=== PATIENT | female | born 2000 | race Caucasian/White ===

== ENCOUNTER 2018-08-20 15:22 | Emergency (ER) | payer OTHER ==
[2018-08-20 16:18] LABS: KETONE, URINE AUTO RFX NEGATIVE (NEGATIVE); LEUKOCYTE ESTERASE UR AUTO RFX NEGATIVE (NEGATIVE); MUCUS, URINE RFX SMALL (NEGATIVE); NITRITE, URINE AUTO RFX NEGATIVE (NEGATIVE); RBC, URINE AUTO RFX 0 /HPF (0-3); SPECIFIC GRAVITY UR AUTO RFX 1.021 (1.002-1.035); SQUAM EPITHELIAL CELL UR AURFX 4 /HPF (0-6); WBC, URINE AUTO RFX 2 /HPF (0-3)
[2018-08-20 16:31] LABS: CONTROL LINE UCG INT CTR LINE PRESENT; URINE PREG TEST NEGATIVE (NEGATIVE)
[2018-08-20 16:38] LABS: INFLUENZA A AMPLIFICATION NEGATIVE (NEGATIVE); INFLUENZA B AMPLIFICATION NEGATIVE (NEGATIVE)
== END 2018-08-20 17:06 | disposition home or self-care (01) ==
LOC: M ED 15:22
DX: B34.9 Viral infection, unspecified (principal); J02.9 Acute pharyngitis, unspecified; M79.10 Myalgia, unspecified site; R68.83 Chills (without fever); Z79.899 Other long term (current) drug therapy
CPT/HCPCS: 84703

== ENCOUNTER 2018-10-17 07:29 | Day surgery (SDC) | payer OTHER ==
[~2018-10-17] VITALS: Ht 160 cm; Wt 73.0 kg
[~2018-10-17 07:29] MED LIST: PSEU60TA23 PO
[2018-10-17] MEDS ORDERED: fentaNYL 250 MCG/5 ML INJECTION (J3010) As Ordered ONE (07:55)
[2018-10-17] MEDS ORDERED: LIDOCAINE 2% INJ 100 MG/5 ML SDV (FOR ANES.) As Ordered ONE (07:55)
[2018-10-17] MEDS ORDERED: PROPOFOL 200 MG/20 ML VIAL As Ordered ONE (07:55)
[2018-10-17] MEDS ORDERED: ROCURONIUM BROMIDE 50 MG/5 ML VIAL As Ordered ONE (07:55)
[2018-10-17] MEDS ORDERED: MIDAZOLAM INJ 2 MG/2 ML VIAL (J2250) As Ordered ONE (07:55)
[2018-10-17] MEDS ORDERED: BUPIVACAINE HCL 0.5% 10 ML VIAL As Ordered ONE (08:31)
[2018-10-17] MEDS ORDERED: LIDOCAINE 1% MDV 20ML VIAL As Ordered ONE (08:31)
[2018-10-17 08:33] LABS: URINE PREG TEST NEGATIVE (NEGATIVE)
[2018-10-17] MEDS ORDERED: ONDANSETRON 4MG/2ML VIAL (J2405) As Ordered ONE (08:56)
[2018-10-17] MEDS ORDERED: dexameTHASONE 4 MG/ML 1ML VIAL (J1100) As Ordered ONE (08:57)
[2018-10-17] MEDS ORDERED: KETOROLAC 60 MG/2 ML VIAL (J1885) As Ordered ONE (08:57)
[2018-10-17] MEDS ORDERED: PERCOCET 5MG/325MG TAB As Ordered ONE (09:41)
[2018-10-17] MEDS ORDERED: ONDANSETRON 4MG/2ML VIAL (J2405) IV PRN (10:00)
[2018-10-17] MEDS ORDERED: PERCOCET 5MG/325MG TAB PO PRN (10:00)
[2018-10-17] MEDS ORDERED: LR 1,000 ML IV SCH (10:00)
[2018-10-17] MEDS ORDERED: MEPERIDINE INJ 25 MG/ML VIAL (J2175) IV PRN (10:00)
[2018-10-17] MEDS ORDERED: fentaNYL 100 MCG/2 ML INJECTION (J3010) IV PRN (10:00)
[2018-10-17 10:06] VITALS: BP 142/72
--- NOTE | 2018-10-17 14:37 | RO ---
DATE OF PROCEDURE: 10/17/2018 PREOPERATIVE DIAGNOSIS: Chronic tonsillitis. POSTOPERATIVE DIAGNOSIS: Chronic tonsillitis. OPERATION PERFORMED: Tonsillectomy with Coblator. SURGEON: Des Vásquez Jr., MD JOGGLE PRESS OPERATOR: ANESTHESIA: General via endotracheal tube by Dr. Lynne and Demarco. INDICATIONS FOR PROCEDURE: Chronic tonsillitis. PROCEDURE IN DETAIL: With the patient in the supine position after being induced, intubated, prepped and draped in usual fashion, the patient was turned 90 degrees and a Kenney-Vijay grooved tongue blade was placed in the oral cavity for soft palate retraction. Next, attention then was drawn to placing her in a Sommer position. She was suspended and a red rubber Ornelas was placed through the left nasal cavity and brought out through the oral cavity for soft palate retraction. After this was done, the Coblator EVAC [id number] wand was used with Coblator setting 7 and coag 3 to dissect the left tonsil out the tonsillar fossa was very deep and endophytic, and in a similar fashion the right side was also dissected out but it was also very deep and endophytic. After this was dissected out, 1.5 mL of a mixture of 1% lidocaine and 0.5% bupivacaine was injected with a 27-gauge needle into the tonsillar fossae very carefully and aspirating prior to injection for postop analgesia. After this was done, the tonsils were irritated with sponges and cold saline were used to irritate the area. The adenoid had been expected and was not enlarged. The grooved tongue blade was released and inspected. There was no further bleeding, Valsalva were done and again no further bleeding. There were no problems. No complications. Control of the patient was turned over to the anesthesiologist. Estimated blood loss was less than 1 mL. MTDD
== END 2018-10-17 11:06 | disposition home or self-care (01) ==
LOC: M SDC 07:29 → MERGE 08:45 → M SDC 11:06
PROVIDERS: ATTEND Otolaryngology
DX: J35.01 Chronic tonsillitis (principal)
CPT/HCPCS: 42826; 84703; 88302; J1100; J1885; J2250; J2405; J3010

== ENCOUNTER 2019-06-22 14:27 | Outpatient (CLI) | payer OTHER ==
[~2019-06-22] VITALS: Ht 160 cm; Wt 81.8 kg
[2019-06-22 14:50] VITALS: BP 112/61
[2019-06-22 14:58] LABS: HEMATOCRIT 34.6 % (36.0-47.0); HEMOGLOBIN 11.9 g/dl (12.0-15.5); MEAN CORPUSCULAR HEMOGLOBIN 31.7 pg (27.0-33.0); MEAN CORPUSCULAR HGB CONC 34.4 g/dl (32.0-36.5); MEAN CORPUSCULAR VOLUME 92.3 fl (80.0-96.0); PLATELET COUNT, AUTOMATED 178 10^3/uL (150-450); RED BLOOD COUNT 3.75 10^6/uL (4.00-5.40); WHITE BLOOD COUNT 12.5 10^3/uL (4.0-10.0)
[2019-06-22] MEDS ORDERED: ACETAMINOPHEN 500 MG TAB PO ONE (15:30)
[2019-06-22 15:34] LABS: ALT/SGPT 16 U/L (12-78); BILIRUBIN,TOTAL 0.2 MG/DL (0.2-1.0); CREATININE FOR GFR 0.61 MG/DL (0.55-1.30); GLOMERULAR FILTRATION RATE > 60.0 (>60); LDH LACTATE DEHYDROGENASE 227 U/L (84-246); URIC ACID 4.1 MG/DL (2.6-6.0)
[2019-06-22 15:40] VITALS: BP 123/72
[2019-06-22 15:40] LABS: TOTAL PROTEIN,RANDOM URINE 15.5 MG/DL (0.0-12.0)
--- NOTE | 2019-06-22 15:47 | IPNPDOC ---
Text Note Date of Service The patient was seen on 06/22/19. NOTE OB Considerations: - mild CFTR mutation , FOB negative, PNC appt completed - Varicella nonimmune: needs vaccination - Overweight BMI Viki is a 19yo G1 at 30+2wks by 8wk US (KEY [id number]) presents from clinic with isolated elevated blood pressure and feeling lightheaded. She reports that she has had headaches since started, usually resolved with time or Tylenol. She reports frontal headache, took 325mg of Tylenol early this morning. She reports 4/10. She also reports feeling off, lightheaded with prolonged standing, "like before you pass out" but denies syncope x2 days. She reports allergy symptoms (itchy/watery eyes, cough, sneezing). She denies vision changes, RUQ pain, dysuria, hematuria, vaginal bleeding, LOF, ctx, sick contacts, or recent travel. Reports active movement. VS: Reviewed: normotensive, nontachycardic, afebrile GEN: WNWD, NAD HEENT: EOMI, PERRLA CV: RRR RESP: CTAB ABD: Soft, Gravid, NT NEURO: CN II-XII intact, +2/4 biceps and patellar DTRs bilaterally EXT: No Edema TAUS: Cephalic, + cardiac activity, Anterior placenta, SOFI 16.5cm FHR: 150bpm, moderate variability, + Accelerations (15x15), - Decelerations TOCO: no contractions Spot: 0.176 Tylenol 1000mg PO x1 A/P: SIUP at 30wks with the above complaints, VS WNL, ruled out for pre eclampsia, symptoms resolved with rest and Tylenol. RNST for gestational age, quiet toco. SOFI WNL. Discussed normal physiologic changes of with patient. - Discussed Strict return precautions - Discussed PTL and Pre Eclampsia precautions - Encouraged hydration - Discussed kick counts - Patient is to keep all scheduled follow ups DO TIMMY Hill Fishbone I+O Kobe WARNER, I+O Laboratory Tests 06/22/19 14:47 Red Blood Count 3.75 L, Mean Corpuscular Volume 92.3, Mean Corpuscular Hemoglobin 31.7, Mean Corpuscular Hemoglobin Concent 34.4, Red Cell Distribution Width 11.9 RAN CESAR DO Jun 22, 2019 15:47
[2019-06-22] MEDS ORDERED: MAPA500T2 PO (16:25)
[2019-06-22] MEDS ORDERED: TUMS500C PO (16:25)
[2019-06-22] MEDS ORDERED: PRENTAB9 PO (16:25)
== END 2019-06-22 16:45 | disposition home or self-care (01) ==
LOC: M LDO 14:27
PROVIDERS: ATTEND Obstetrics & Gynecology
DX: O26.893 Other specified pregnancy related conditions, third trimester (principal); R03.0 Elevated blood-pressure reading, without diagnosis of hypertension; R51 Headache; R42 Dizziness and giddiness; Z3A.30 30 weeks gestation of pregnancy
CPT/HCPCS: 36415; 59025; 76815; 82247; 82565; 82570; 83615; 84156; 84450; 84460; 84550; 85027; G0378; G0463

== ENCOUNTER 2019-08-24 17:44 | Inpatient (IN) | payer OTHER ==
[2019-08-24] VITALS (30 sets, daily range): BP systolic 84–177; BP diastolic 44–102
[~2019-08-24] VITALS: Ht 160 cm; Wt 88.0 kg
[~2019-08-24 17:44] MED LIST changes: +MAPA500T2 PO; +PRENTAB9 PO; +TUMS500C PO
[2019-08-24] MEDS ORDERED: PENICILLIN G POTASSIUM IV 5 MU in D5W MINI-BAG PLUS 100 ML IV STA (18:45)
[2019-08-24] MEDS ORDERED: LACTATED RINGER'S 1000 ML IV STA (18:45)
[2019-08-24] MEDS ORDERED: EVEN500C3 PO (19:10)
[2019-08-24 19:45] LABS: HEMATOCRIT 38.7 % (36.0-47.0); HEMOGLOBIN 12.9 g/dl (12.0-15.5); MEAN CORPUSCULAR HEMOGLOBIN 30.9 pg (27.0-33.0); MEAN CORPUSCULAR HGB CONC 33.3 g/dl (32.0-36.5); MEAN CORPUSCULAR VOLUME 92.8 fl (80.0-96.0); PLATELET COUNT, AUTOMATED 185 10^3/uL (150-450); RED BLOOD COUNT 4.17 10^6/uL (4.00-5.40); WHITE BLOOD COUNT 16.7 10^3/uL (4.0-10.0)
[2019-08-24 20:12] LABS: CREATININE,RANDOM URINE 60.4 MG/DL; TOTAL PROTEIN,RANDOM URINE 37.9 MG/DL (0.0-12.0)
[2019-08-24 20:14] LABS: ALT/SGPT 22 U/L (12-78); BILIRUBIN,TOTAL 0.4 MG/DL (0.2-1.0); CREATININE FOR GFR 0.64 MG/DL (0.55-1.30); GLOMERULAR FILTRATION RATE > 60.0 (>60); LDH LACTATE DEHYDROGENASE 200 U/L (84-246); URIC ACID 5.3 MG/DL (2.6-6.0)
[2019-08-24] MEDS ORDERED: MAG Sulf (L&D) 4 GM/100 ML 4 GM in IV 1 EA IV ONE (20:30)
[2019-08-24] MEDS ORDERED: CALCIUM GLUCONATE 1,000 MG in D5W MINI-BAG PLUS 100 ML IV PRN (20:30)
[2019-08-24] MEDS ORDERED: hydrALAZINE INJ 20 MG/ML VIAL IV ONE (20:30)
[2019-08-24] MEDS ORDERED: MAG Sulf (OBGYN) 20GM/500ML 20,000 MG in IV 1 EA IV SCH (20:30)
[2019-08-24] MEDS: LR 1,000 ML IV SCH ×2 (20:53→22:48)
[2019-08-24] MEDS: hydrALAZINE INJ 20 MG/ML VIAL IV SCH ×2 (21:00→21:20)
--- NOTE | 2019-08-24 21:20 | HPEPDOC ---
Obstetrical History & Physical General Date of Admission Aug 24, 2019 at 19:00 History of Present Illness Viki is a 19yo with SIUP at 39w3d by lmp c/w 8wk u/s presenting this evening for regular painful ctx q3-5min for 2 hours. Notably in triage she was found to have mild range to intermittent severe range bp's. She denies HICKS/vision changes/RUQ pain. She states "I think my bp is elevated because of the pain of the ctx". She has felt movement. No LOF or vaginal bleeding. No f/c/n/v/SOB or CP. 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) but father of baby is negative, overweight starting BMI 27 with weight gain 34lb, varicella non-immune, GBS positive Height (inches): 63 Pre- weight (lbs.): 154 Admission Weight (lbs.): 188 Change in Weight (lbs.): 34 Past Medical History Past Obstetrical History : Past Obstetrical History: Primgravida [employer]IC History: No pertinent history Past Medical History Medical History Overweight Surgical History: Tonsilectomy Family History Significant Family History: No pertinent family hx Social History Marital Status: Family situation: Spouse/partner home Psychosocial History: No pertinent psych hx * Smoker: non-smoker Alcohol: Denies Drugs: denies Imunizations Tdap status: current Influenza Status: current Allergies Coded Allergies: No Known Allergies (Unverified , 10/10/18) Medications Scheduled Evening [place] Oil (Evening [place] Oil) 500 Mg Capsule, 1 CAP PO TID No.137/Iron/Folic Acd ( Vitamin Tablet) 1 Each Tablet, 1 TAB PO DAILY Physical Examination Physical Examination GENERAL: Alert and oriented times three. ABDOMEN: Gravid and non-tender to touch. FETUS: Is vertex (VTX) by sterile vaginal examination (SVE) EXTREMITIES: trace pedal edema Vital Signs/I&O Vital Signs Date Time Temp Pulse Resp B/P (MAP) Pulse Ox O2 Delivery O2 Flow Rate FiO2 08/24/19 18:58 85 18 148/82 (104) 08/24/19 18:12 98.6 97 Laboratory Data 24H LABS Laboratory Tests 2 08/24/19 19:05: Serology Scanned Report Hepatitis B Testing 08/24/19 19:34: Nucleated Red Blood Cells % (auto) 0.0, Urine Random Creatinine 60.4, Urine Random Total Protein 37.9H, Glomerular Filtration Rate > 60.0, Uric Acid 5.3, Total Bilirubin 0.4, Aspartate Amino Transf (AST/SGOT) 19, Alanine Aminotransferase (ALT/SGPT) 22, Lactate Dehydrogenase 200 CBC/BMP Laboratory Tests 08/24/19 19:34 Pertinent Laboratoy Data Blood Type: O+ RBC Antibody Screen: Negative HIV: Negative Hepatitis B: Negative Hepatitis C: Unknown Rapid Plasma Reagin: Nonreactive Rubella: Immune Varicella: Immune Chlamydia/Gonorrhea: Negative Group B Streptococcus: Positive Cystic Fibrosis: Positive Glucose Tolerance Test: 128 Anatomy Ultrasound Ultrasound Date: Apr 13, 2019 Placenta Location: Anterior Normal Anatomy: Yes Placenta Previa: No Steroid Therapy Steroid Therapy: No Vaginal Examination Dilation: 4 cm Effacement: 90% Station: -1 Cervical Consistency: Soft Cervical Position: Anterior Presentation: Cephalic presentation Assessment Heart Rate (FHR): 140 Variability: Minimal to moderate Accelerations: Positive Decelerations: None Tocometer Contractions: Yes Frequency: regular, every 2-5 min. Duration: greater than 60 seconds Strength: palpated as moderate Assessment/Plan Assessment Viki is a 19yo with SIUP at 39w3d by lmp c/w 8wk u/s with new dx of pre- eclampsia with severe features in latent labor. Severe pre-E dx by intermittent mild range to severe range bp's with urine protein:creatinine 0.67. SCE 4/90/-2. Cat I FHRT, ctx q2-3min. Cephalic by SCE. GBS positive with NKDA. 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 Counseled and consented regarding pre-E dx, need for MgSO4, labor/delivery. MgSO4 IV 4g loading dose then 2g qhr. Neuro checks q1hr. Plan for MgSO4 until 24hr PP. IV hydralazine per protocol for any persistent severe range bp's Diet: clear liquids Group B Streptococcus (GBS) positive: PCN per protocol Labs and intravenous (IV) per unit protocol. Lactated Ringers (LR): Bolus 500 mL, then at 125 mL/hr. Candidate for epidural in active labor Safe to proceed MD Marily Hemphill Katrina D MD Aug 24, 2019 21:20
[2019-08-24] MEDS ORDERED: FENTANYL 2MCG/ML ROPIVACAINE 0.2% IN 0.9% NACL 100ML IVBAG As Ordered ONE (21:44)
[2019-08-24] MEDS ORDERED: FENTANYL/ROPIVACAINE/NACL BAG 100 ML EPIDURAL SCH (22:45)
[2019-08-24] MEDS ORDERED: EPIDURAL COMMENT XX SCH (22:45)
[2019-08-24] MEDS ORDERED: ePHEDrine SULFATE 25 MG/5 ML(5MG/ML) SYRINGE IV PRN (22:45)
[2019-08-24] MEDS ORDERED: diphenhydrAMINE INJ 50MG/ML VIAL (J1200) IV PRN (22:45)
[2019-08-24] MEDS ORDERED: ONDANSETRON 4MG/2ML VIAL (J2405) IV PRN (22:45)
[2019-08-24] MEDS ORDERED: NALOXONE INJ 0.4 MG/1 ML VIAL (J2310) IV PRN (22:45)
[2019-08-24] MEDS ORDERED: EPIDURAL/PCA KEYS XX PRN (22:45)
[2019-08-24] MEDS ORDERED: REFRIGERATOR IV KEYS XX PRN (22:45)
[2019-08-25] VITALS (49 sets, daily range): BP systolic 116–189; BP diastolic 56–92
[2019-08-25] MEDS ORDERED: OXYTOCIN 30 UNITS IN 0.9% NaCl 500ML IV BAG (J2590) As Ordered ONE (00:09)
[2019-08-25] MEDS: PENICILLIN G POTASSIUM IV 2.5 MU in IV 1 EA IV SCH ×3 (00:11→08:28)
[2019-08-25] MEDS ORDERED: OXYTOCIN DRIP 30 UNITS in IV 1 EA IV SCH ×2 (00:30→10:06)
--- NOTE | 2019-08-25 02:04 | IPNPDOC ---
Text Note Date of Service The patient was seen on 08/25/19. NOTE Intrapartum Note Pt received epidural and is comfortable now. BPs became slightly hypotensive, so IV MgSO4 was stopped. She never required IV anti-HTN med since bp's did not stay sustained severe range. She received 1st dose PCN and due for 2nd soon. Cat I-II FHRT with min-mod shilpa, +accels, -decels [place]: ctx spaced out, irregular SCE: /-1, AROM performed with copious clear fluid Plan to begin pitocin and titrate per protocol 2nd dose of PCN Will continue to observe bp's and if they meet criteria, will resume IV Mg Safe to proceed Dr. Melissa Calixto MD VS,Kobe, I+O VS, Kobe, I+O Laboratory Tests 08/24/19 19:34 Vital Signs Date Time Temp Pulse Resp B/P (MAP) Pulse Ox O2 Delivery O2 Flow Rate FiO2 08/24/19 21:03 75 18 144/89 (107) 08/24/19 18:12 98.6 97 I&O- Last 24 Hours up to 6 AM 08/25/19 06:00 Output Total 625 ml Balance -625 ml Melissa Calixto MD Aug 25, 2019 00:56
--- NOTE | 2019-08-25 02:25 | IPNPDOC ---
Text Note Date of Service The patient was seen on 08/25/19. NOTE Intrapartum Note SCE /-2, fluid still clear. IUPC placed to better assess ctx strength to titrate pitocin. Cat I-II FHRT with min-mod shilpa, +accels, -decels Will titrate pitocin to adequate MVUs and plan to recheck in 4hr or earlier as indicated Dr. Melissa Calixto MD VS,Kobe, I+O VS, Kobe, I+O Laboratory Tests 08/24/19 19:34 Vital Signs Date Time Temp Pulse Resp B/P (MAP) Pulse Ox O2 Delivery O2 Flow Rate FiO2 08/24/19 21:03 75 18 144/89 (107) 08/24/19 18:12 98.6 97 I&O- Last 24 Hours up to 6 AM 08/25/19 06:00 Output Total 1175 ml Balance -1175 ml Melissa Calixto MD Aug 25, 2019 02:25
[2019-08-25] MEDS: LR 1,000 ML IV SCH (05:08)
--- NOTE | 2019-08-25 08:06 | IPNPDOC ---
Text Note Date of Service The patient was seen on 08/25/19. NOTE Intrapartum Note I checked Viki at 0700. At that time she was beginning to feel her ctx more. SCE (RN as treatment coordinator): 8(all on the right side)/90/-1 Pt has not had any consistent severe range bp's since admission and MgSO4 was turned off when she became hypotensive after epidural. Since she has remained normotensive to mild range (NEVER having been given any IV anti-HTN meds), MgSO4 has not been re-started. My criteria for the RN to re-start MgSO4 has been two severe range bp's in a row which has not occurred. Plan to re-check pt in 2hr or sooner if she has the urge to push. Will continue to titrate pitocin per protocol to effect adequate MVUs Safe to proceed Dr. Melissa Calixto MD VS,Kobe, I+O VS, Kobe, I+O Laboratory Tests 08/24/19 19:34 Vital Signs Date Time Temp Pulse Resp B/P (MAP) Pulse Ox O2 Delivery O2 Flow Rate FiO2 08/25/19 06:39 99.2 69 18 135/62 (86) 08/24/19 18:12 97 I&O- Last 24 Hours up to 6 AM 08/25/19 06:00 Output Total 1525 ml Balance -1525 ml Melissa Calixto MD Aug 25, 2019 08:06
[2019-08-25] MEDS ORDERED: IBUPROFEN 800 MG TAB PO PRN (10:15)
[2019-08-25] MEDS ORDERED: MEASLES,MUMPS,RUBELLA VACCINE INJ (MMR-II) (90707) SC SCH (10:15)
[2019-08-25] MEDS ORDERED: MOM 30ML SUSPENSION UDC PO PRN (10:15)
[2019-08-25] MEDS ORDERED: ACETAMINOPHEN 500 MG TAB PO PRN (10:15)
[2019-08-25] MEDS ORDERED: ONDANSETRON 4MG/2ML VIAL (J2405) IV PRN (10:15)
[2019-08-25] MEDS ORDERED: DOCUSATE SODIUM 100 MG CAP PO PRN (10:15)
[2019-08-25] MEDS ORDERED: RHOGAM 300 MCG (1500 IU) INJ (J2790) IM SCH (10:15)
[2019-08-25] MEDS ORDERED: DIBUCAINE 1% OINTMENT 30GM TOP PRN (10:15)
[2019-08-25] MEDS ORDERED: METHYLERGONOVINE MALEATE 0.2 MG TAB PO SCH (10:15)
[2019-08-25] MEDS: PRENATAL VITAMINS CHEWABLE TABLET PO SCH (12:30)
[2019-08-25] MEDS: METHYLERGONOVINE MALEATE 0.2 MG TAB PO SCH ×3 (14:25→21:46)
[2019-08-26] MEDS: METHYLERGONOVINE MALEATE 0.2 MG TAB PO SCH ×3 (01:59→11:02)
[2019-08-26 06:00] VITALS: BP 142/74
--- NOTE | 2019-08-26 07:21 | IPN ---
DATE: 08/26/2019 This lady is a 19-year-old, 1, now para 1, who was admitted with contractions and severe range blood pressures. She was initially started on mag sulfate, however, after the epidural she had significantly lower blood pressures. At , she did not have any severe range blood pressures and magnesium sulfate was not continued. She had an epidural in place. Spontaneous vaginal delivery of a male , 3760 grams, Apgars of 8 and 9 at one and five minutes respectively. On her first day, her blood pressure was 142/74. She did have some midrange blood pressures, but nothing significant in that she did not have any severe range after that. No right upper quadrant pain. No visual disturbances. Therefore, mag sulfate was not completed for 24 hours. Her admitting hemoglobin was 12.9, hematocrit 38.7 and platelets were 185. On the first day , she is mobilizing. Chest is clear bilaterally. No wheezes or rhonchi. No costovertebral angle (CVA) tenderness. Abdomen soft, uterus two below. Lochia is moderate. Four quadrant bowel sounds are noted. Perineum is intact. She has no rashes, lesions or pruritus. No arthralgia or myalgia. No complaint of joint pain. No complaint of cough, wheeze, shortness of breath or dyspnea on exertion. She is neuro complete. No nausea, vomiting, diarrhea or constipation. No visual disturbances. In summary, we have a term gestation who delivered a live male . Plan is for discharge tomorrow. She has midrange blood pressures, not treated.
--- NOTE | 2019-08-26 07:23 | IPN ---
DATE: 08/26/2019 This lady requested circumcision of her male . After discussing the risks and benefits of the circumcision, the medical and nonmedical indication, penile block and aftercare, expressed understanding of penile block and aftercare. All questions were answered, 20 minute discussion, signed the consent form. We await clearance by the senior business objects developer.
[2019-08-26] MEDS: PRENATAL VITAMINS CHEWABLE TABLET PO SCH (11:02)
[2019-08-26 18:00] VITALS: BP 147/77
[2019-08-27 06:39] VITALS: BP 152/88
--- NOTE | 2019-08-27 06:57 | IPNPDOC ---
Progress Note Date of Service: Aug 27, 2019 Day#: 2 Progress Note SUBJECT: Patient is a 19 yo s/p PPD #2. She was admitted with pre-ecl ampsia with severe features (severe range BP). Today without concerns. denies HICKS/N/V/change in vision. She has been ambulating, voiding spontaneously without issue and tolerating regular diet. Breast feeding without issue. Patient plans on mirena IUD for contraceptive. Patient was on Mag during her labor course. Mag was turned off immediately . OBJECTIVE: VITAL SIGNS: 140's-150's/80's, HR: 60's, afebrile. Alert and oriented times three. Abdomen: Fundus firm at U-2. Soft, NTTP. LE: no edema/erythema/tednerness A/P patient is PPD #2 with pre-e with severe feature. BP remains in high mild range. discussed with patient regarding starting antihypertensive this AM. Okay to discharge home if her BP is controlled later this afternoon or evening. start with nifedipine xl 30mg daily. continue with routine ppc. disposition pending BP control. DO Judith VS, I&O, 24H, Fishbone Vital Signs/I&O Vital Signs Date Time Temp Pulse Resp B/P (MAP) Pulse Ox O2 Delivery O2 Flow Rate FiO2 08/27/19 06:39 97.8 62 18 152/88 (109) 08/26/19 06:00 96 Room Air CEM BRUSH DO Aug 27, 2019 06:57
[2019-08-27] MEDS: PRENATAL VITAMINS CHEWABLE TABLET PO SCH (08:17)
[2019-08-27 08:18] VITALS: BP 162/96
[2019-08-27] MEDS: NIFEdipine 30 MG XL TAB PO SCH (08:18)
[2019-08-27 10:00] VITALS: BP 138/88
[2019-08-27 13:28] VITALS: BP 142/86
[2019-08-27 17:36] VITALS: BP 164/98
[2019-08-27 22:00] VITALS: BP 144/94
[2019-08-28 02:00] VITALS: BP 142/79
[2019-08-28 06:00] VITALS: BP 151/92
[2019-08-28] MEDS ORDERED: DOCU100C16 PO (06:48)
[2019-08-28] MEDS ORDERED: ACET-683 PO (06:48)
[2019-08-28] MEDS ORDERED: DIBU10OI TOP (06:48)
[2019-08-28] MEDS ORDERED: NIFE30TA7 PO (06:48)
[2019-08-28] MEDS ORDERED: IBUP80TA PO (06:48)
[2019-08-28] MEDS: PRENATAL VITAMINS CHEWABLE TABLET PO SCH (08:02)
[2019-08-28] MEDS: NIFEdipine 30 MG XL TAB PO SCH (08:03)
--- NOTE | 2019-08-28 19:53 | DSES ---
DATE OF ADMISSION: 08/24/2019 DATE OF DISCHARGE: 08/28/2019 This lady is a 19-year-old 1, now para 1 admitted with gestational hypertension in the severe range and contractions. She had a spontaneous vaginal delivery of a live male infant weighing 3760 grams, scores of 8 and 9 at one and five minutes respectively. She initially had been started on magnesium sulfate but magnesium sulfate was discontinued because her blood pressures went down at the time of epidural. , she had swinging blood pressures with some midrange, no severe range blood pressure, started on nifedipine, and over a 24-hour period, her blood pressures remained in the mid range area. She was discharged with nifedipine to followup in 72 hours in the office for blood pressure evaluation. She denies any headache, right upper quadrant pain or visual disturbances. The rest of the examination is unremarkable. Normocephalic, atraumatic. Neck: Full range of motion. Pupils equal and reactive to light. Distal pulses are symmetric. No evidence of deep vein thrombosis (DVT), pulmonary embolism (PE) or superficial phlebitis. Chest is clear bilaterally to bases. No wheezes or rhonchi. No costovertebral angle (CVA) tenderness. Abdomen: Soft, uterus 2 below. Lochia is moderate. Four quadrant bowel sounds are noted. She was given discharge instructions regarding right upper quadrant pain, visual disturbances, headaches, decreased urinary output and when to call the provider. The patient was discharged with no medications, a 72-hour followup in the office and six-week checkup. All questions were answered. The patient expressed understanding of the plan of care.
== END 2019-08-28 08:50 | disposition home or self-care (01) | DRG 807 ==
LOC: M LDO 17:44 → M LDI 19:00 → M OBS 08-25 13:25
PROVIDERS: ADMIT Obstetrics & Gynecology; ATTEND Obstetrics & Gynecology
PROC: 10E0XZZ Delivery of Products of Conception, External Approach (ICD-10-PCS; principal; 2019-08-25)
DX: O14.14 Severe pre-eclampsia complicating childbirth (principal); Z37.0 Single live birth; Z3A.39 39 weeks gestation of pregnancy; O99.820 Streptococcus B carrier state complicating pregnancy